=== PATIENT | male | born 1965 ===

== ENCOUNTER 2016-12-22 20:01 | Observation (INO) | payer OTHER ==
[2016-12-22] MEDS ORDERED: Albuterol-Ipratrop 3 mg / 0.5 (3 ml) UD INH STA (20:20)
[2016-12-22] MEDS ORDERED: Sodium Chloride 0.9% 500 ML IV STA (20:20)
[2016-12-22] MEDS ORDERED: Albuterol-Ipratrop 3 mg / 0.5 (3 ml) UD IH STA ×2 (20:20)
[2016-12-22] MEDS ORDERED: Albuterol-Ipratrop 3 mg / 0.5 (3 ml) UD ONE (20:21)
--- NOTE | 2016-12-22 20:33 | ED PDOC ---
HPI: SOB/CHF/COPD Chief Complaint (Provider): Shortness of breath History Per: Patient Onset/Duration Of Symptoms: Days Current Symptoms Are (Timing): Still Present Exacerbating Factor(s): Laying Flat Current Respiratory Medications: None Severity: Moderate Associated Symptoms: Fever, Chills, Sweating, Other (Non-productive cough) <Jean Carlos Harper - Last Filed: 12/22/16 22:46> <Db Marquis - Last Filed: 12/22/16 23:13> Time Seen by Provider: 12/22/16 20:11 Chief Complaint (Nursing): Respiratory Distress Additional Complaint(s): 51 y/o M with PMH of HTN, HLD presents with a 3 day history of progressive SOB. Patient reports associated sinus congestion, rhinorrhea, chills, non-productive cough and pleuritic chest pain radiating to his back when he takes a deep breath. He also reports progressive orthopnea over the last 3 days. He denies any pulmonary history including asthma or COPD and has never smoked. He recently traveled to [place] with his family and returned 8 days ago but denies any other recent travel. Patient further denies headaches, dizziness, abdominal pain, nausea, vomiting, diarrhea, lower extremity pain, focal weakness or paresthesias. (Jean Carlos Harper) Supervising Attending Note <Jean Carlos Harper - Last Filed: 12/22/16 22:46> - Supervising Attending Note The Documented history was done by the: Physician Back Panel Padder The documented physical exam was done by the: Physician Back Panel Padder The documented procedures were done by the: Physician Back Panel Padder - Attestation: I have personally seen and examined this patient.: Yes I have fully participated in the care of the patient.: Yes I have reviewed all pertinent clinical information, including history, physical exam and plan: Yes <Db Marquis - Last Filed: 12/22/16 23:13> - Notes: Notes:: Dyspnea No leg pain. (Db Marquis) Past Medical History - Medical History PMH: HTN, Hyperlipidemia - Family History Family History: States: No Known Family Hx - Living Arrangements Living Arrangements: With Family - Social History Current smoker - smoking cessation education provided: No Ex-Smoker (has not smoked in the last 12 months): No Alcohol: None Drugs: Denies <Leroy,Jean Carlos - Last Filed: 12/22/16 22:46> <Db Marquis - Last Filed: 12/22/16 23:13> Vital Signs: Last Vital Signs Temp 98.1 F 12/22/16 22:30 Pulse 92 H 12/22/16 22:30 Resp 16 12/22/16 22:30 BP 121/72 12/22/16 22:30 Pulse Ox 97 12/22/16 22:50 - Home Medications Home Medications: Ambulatory Orders Medication Instructions Recorded Atorvastatin [Lipitor] 10 mg PO HS 12/22/16 Lisinopril/Hydrochlorothiazide 1 tab PO DAILY 12/22/16 [Lisinopril-Hctz 10-12.5 mg Tab] - Allergies Allergies/Adverse Reactions: Allergies Allergy/AdvReac Type Severity Reaction Status Date / Time No Known Allergies Allergy Verified 12/22/16 20:06 Wells Criteria for PE - Wells Criteria for Pulmonary Embolism Clinical Signs and Symptoms of DVT: No P.E is #1 Diagnosis, or Equally Likely: No Heart Rate >100: No Immobilization at least 3 days;Surgery previous 4 weeks: No Previous, objectively diagnosed PE or DVT: No Hemoptysis: No Malignancy w/treatment within 6 months, or palliative: No Total Score: 0 <RyannunoJean Carlos herring - Last Filed: 12/22/16 22:46> Review of Systems Constitutional: Positive for: Chills. Negative for: Weakness Eyes: Negative for: Vision Change ENT: Positive for: Nose Congestion Cardiovascular: Positive for: Chest Pain, Orthopnea. Negative for: Palpitations Respiratory: Positive for: Cough, Wheezing. Negative for: Hemoptysis, Sputum Gastrointestinal: Negative for: Nausea, Vomiting, Abdominal Pain, Diarrhea Skin: Negative for: Rash Neurological: Negative for: Weakness <Jean Carlos Harper - Last Filed: 12/22/16 22:46> ENT: Positive for: Nose Congestion Respiratory: Positive for: Wheezing <Db Marquis - Last Filed: 12/22/16 23:13> Physical Exam - Reviewed Vital Signs Reviewed: Yes - Physical Exam Appears: Positive for: Uncomfortable Head Exam: Positive for: ATRAUMATIC, NORMAL INSPECTION, NORMOCEPHALIC Skin: Positive for: Warm, Diaphoresis Eye Exam: Positive for: Normal appearance, EOMI, PERRL Cardiovascular/Chest: Positive for: Regular Rate, Rhythm. Negative for: Murmur Respiratory: Positive for: Rales, Wheezing, Other (Decreased air entry b/l with diffuse expiratory wheezes audible. Left lower lung rales present. Patient appears SOB and is speaking in short sentences. ). Negative for: Accessory Muscle Use Pulses-Radial (L): 2+ Pulses-Radial (R): 2+ Gastrointestinal/Abdominal: Positive for: Normal Exam, Soft. Negative for: Tenderness, Distended, Guarding, Rebound Extremity: Positive for: Capillary Refill (<2s). Negative for: Pedal Edema, Calf Tenderness Neurologic/Psych: Positive for: Alert, Oriented (x3) <Jean Carlos Harper - Last Filed: 12/22/16 22:46> - Physical Exam Respiratory: Positive for: Wheezing <bD Marquis - Last Filed: 12/22/16 23:13> - Laboratory Results Result Diagrams: 12/22/16 20:30 12/22/16 20:30 - ECG ECG: Positive for: Viewed By Me ECG Rhythm: Positive for: Normal QRS, Normal ST Segment, Sinus Rhythm. Negative for: ST/T Changes O2 Sat by Pulse Oximetry: 97 - Progress Condition: Improving,but remains with symptoms <Jean Carlos Harper - Last Filed: 12/22/16 22:46> - Laboratory Results Result Diagrams: 12/22/16 20:30 12/22/16 20:30 - ECG Pulse Ox Interpretation: Normal - Radiology X-Ray: Interpreted by Me, Viewed By La X-Ray Interpretation: No Acute Disease - Critical Care Total Time (In Min): 30 Documented Critical Care: Time excludes all time spent performint seperately billable procedures <Db Marquis - Last Filed: 12/22/16 23:13> - Progress ED Course And Treament: 20:30 Afebrile, uncomfortable O2 Sat: 96% on room air EKG NSR with no ischemic changes present Peak flow 160 Duoneb x3 ordered Solumedrol 125mg IV Labs: CBC, CMP, BNP, troponin, ABG, CXR, blood culture, UA 22:00 SOB improved however scattered wheezes audible O2 Sat: 94% on NC Troponin negative, ProBNP WNL Patient to be admitted for observation (Leroy,Jean Carlos) 2313: Stable. AAOx3. Spoke with Dr. Browning. Will admit. Monitor. No hx of asthma. (Db Marquis) Disposition - Patient ED Disposition Is Patient to be Admitted: Yes - Disposition Disposition Time: 22:48 - Pt Status Changed To: Hospital Disposition Of: Observation <RyanesterJean Carlos - Last Filed: 12/22/16 22:46> - Patient ED Disposition Is Patient to be Admitted: Yes Counseled Patient/Family Regarding: Studies Performed, Diagnosis - Pt Status Changed To: Hospital Disposition Of: Observation - POA Present On Arrival: None <Db Marquis - Last Filed: 12/22/16 23:13> - Clinical Impression Clinical Impression: Dyspnea - Disposition Condition: FAIR
[2016-12-22 20:38] LABS: BASO # 0.1 K/uL (0.0-0.2); BASO % 0.9 % (0.0-2.0); EOS # 0.7 K/uL (0.0-0.7); EOS % 8.6 % (0.0-4.0); HEMOGLOBIN 16.7 g/dL (12.0-18.0); LYMPH # 1.5 K/uL (1.0-4.3); LYMPH % 16.9 % (20.0-40.0); MEAN CELL VOLUME 91.4 fl (80.0-94.0); MEAN CORPUSCULAR HEMOGLOBIN 31.8 pg (27.0-31.0); MEAN CORPUSCULAR HGB CONC 34.7 g/dL (33.0-37.0); MONO # 0.9 K/uL (0.0-0.8); MONO % 10.8 % (0.0-10.0); NEUT # 5.4 K/uL (1.8-7.0); NEUT % 62.8 % (50.0-75.0); NRBC % 0.2 % (0.0-0.0); RBC 5.27 Mil/uL (4.40-5.90); RED CELL DISTRIBUTION WIDTH 13.3 % (11.5-14.5); WHITE BLOOD COUNT 8.6 K/uL (4.8-10.8)
[2016-12-22 20:41] LABS: ABG ALLEN TEST YES; ARTERIAL BLOOD GAS HCO3 25.3 mmol/L (21-28); ARTERIAL BLOOD GAS O2 SAT 98.7 % (95-98); ARTERIAL BLOOD GAS PCO2 31 mm/Hg (35-45); ARTERIAL BLOOD GAS PH 7.48 (7.35-7.45); ARTERIAL BLOOD GAS PO2 104 mm/Hg (80-100); ARTERIAL BLOOD GAS TCO2 24.1 mmol/L (22-28)
[2016-12-22 20:43] LABS: ALBUMIN 4.5 g/dL (3.5-5.0)
[2016-12-22 20:45] LABS: GFR AFRICAN-AMERICAN > 60; GFR NON-AFRICAN AMERICAN > 60
[2016-12-22 20:46] LABS: ALB/GLOB RATIO 1.2 (1.0-2.1); ALT/SGPT 40 U/L (21-72); AST/SGOT 27 U/L (17-59); BLOOD UREA NITROGEN 13 mg/dl (9-20); CALCIUM 9.3 mg/dL (8.4-10.2)
[2016-12-22 20:50] LABS: PARTIAL THROMBOPLASTIN TIME 31.6 Seconds (25.6-37.1); PROTHROMBIN TIME 11.1 Seconds (9.8-13.1)
[2016-12-22 21:38] LABS: B-TYPE NATRIURETIC PEPTIDE 31.3 pg/ml (0-900)
[2016-12-22 22:02] LABS: URINE BILIRUBIN NEGATIVE (NEGATIVE); URINE BLOOD SMALL (NEGATIVE); URINE CLARITY SLIGHTY-CLOUDY (Clear); URINE COLOR YELLOW (YELLOW); URINE GLUCOSE (UA) NEG (Normal); URINE LEUKOCYTE ESTERASE NEG Leu/uL (Negative); URINE NITRATE NEGATIVE (NEGATIVE); URINE PROTEIN NEGATIVE (NEGATIVE); URINE UROBILINOGEN 0.2-1.0 mg/dL (0.2-1.0)
[2016-12-22] MEDS ORDERED: Albuterol-Ipratrop 3 mg / 0.5 (3 ml) UD INH PRN (22:19)
--- NOTE | 2016-12-22 22:23 | CP.PCM.HP ---
History of Present Illness - History of Present Illness History of Present Illness: CC: SOB HPI: 51 y/o male with HTN and HLD comes in with 2-3 days of worsening SOB, wheezing, and occ dry non-prod cough. States he has never been diagnosed with asthma or COPD, and never had these symptoms in the past. Denies f/c/n/v/d. Denies CP. Denies hemoptysis. 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 that he is not normally around. He did travel to [place] for about 8 days ago, mainly in the city. Denies going into any rural areas, denies going to any kind of zoo or other place where he would contact animals. ROS: 14 pt ROS negative other than HPI MHx: HTN, HLD SHx: None Allergies: NKDA Medications: per med rec Family Hx: no relevant findings Social Hx: Lives with family, no tobacco use, no EtOH Present on Admission - Present on Admission Any Indicators Present on Admission: No Past Patient History - Past Social History Alcohol: None Drugs: Denies - CARDIAC Hx Hypertension: Yes - PSYCHIATRIC Hx Substance Use: No Meds Allergies/Adverse Reactions: Allergies Allergy/AdvReac Type Severity Reaction Status Date / Time No Known Allergies Allergy Verified 12/22/16 20:06 Physical Exam - Constitutional Appears: No Acute Distress - Head Exam Head Exam: ATRAUMATIC, NORMOCEPHALIC - Eye Exam Eye Exam: EOMI, PERRL - ENT Exam ENT Exam: Mucous Membranes Moist - Neck Exam Neck exam: Positive for: Full Rom - Respiratory Exam Respiratory Exam: Decreased Breath Sounds, Wheezes - Cardiovascular Exam Cardiovascular Exam: Tachycardia, +S1, +S2 - GI/Abdominal Exam GI & Abdominal Exam: Normal Bowel Sounds, Soft - Extremities Exam Extremities exam: Positive for: full ROM, normal inspection Additional comments: no calf/thing tenderness or swelling - Neurological Exam Neurological exam: Alert, CN II-XII Intact, Oriented x3 - Psychiatric Exam Psychiatric exam: Normal Affect, Normal Mood - Skin Skin Exam: Dry, Warm Results - Vital Signs Recent Vital Signs: Last Vital Signs Temp 99.5 F 12/22/16 20:06 Pulse 92 H 12/22/16 20:06 Resp 18 12/22/16 20:17 BP 148/93 H 12/22/16 20:06 Pulse Ox 97 12/22/16 20:41 - Labs Result Diagrams: 12/22/16 20:30 12/22/16 20:30 Labs: Laboratory Results - last 24 hr 12/22/16 12/22/16 12/22/16 20:30 20:30 20:30 WBC 8.6 RBC 5.27 Hgb 16.7 Hct 48.2 MCV 91.4 MCH 31.8 H MCHC 34.7 RDW 13.3 Plt Count 199 MPV 8.0 Neut % (Auto) 62.8 Lymph % (Auto) 16.9 L [place] % (Auto) 10.8 H Eos % (Auto) 8.6 H Baso % (Auto) 0.9 Neut # 5.4 Lymph # 1.5 [place] # 0.9 H Eos # 0.7 Baso # 0.1 PT 11.1 INR 1.0 APTT 31.6 pCO2 pO2 HCO3 ABG pH ABG Total CO2 ABG O2 Saturation ABG Base Excess Ino Test ABG Potassium A-a O2 Difference Glucose Lactate Vent Mode FiO2 Sodium 135 Potassium 4.1 Chloride 104 Carbon Dioxide 24 Anion Gap 12 BUN 13 Creatinine 1.0 Est GFR ( Amer) > 60 Est GFR (Non-Af Amer) > 60 Random Glucose 94 Calcium 9.3 Phosphorus 4.6 H Magnesium 2.0 Total Bilirubin 0.5 AST 27 ALT 40 Alkaline Phosphatase 82 Troponin I < 0.0120 NT-Pro-B Natriuret Pep 31.3 Total Protein 8.1 Albumin 4.5 Globulin 3.6 Albumin/Globulin Ratio 1.2 Arterial Blood Potassium 12/22/16 20:32 WBC RBC Hgb Hct MCV MCH MCHC RDW Plt Count MPV Neut % (Auto) Lymph % (Auto) [place] % (Auto) Eos % (Auto) Baso % (Auto) Neut # Lymph # [place] # Eos # Baso # PT INR APTT pCO2 31 L pO2 104 H HCO3 25.3 ABG pH 7.48 H ABG Total CO2 24.1 ABG O2 Saturation 98.7 H ABG Base Excess 0.4 Ino Test Yes ABG Potassium 3.4 L A-a O2 Difference 178.0 Glucose 98 Lactate 0.8 Vent Mode Aerosol mask FiO2 45.0 Sodium 132.0 Potassium Chloride 102.0 Carbon Dioxide Anion Gap BUN Creatinine Est GFR ( Amer) Est GFR (Non-Af Amer) Random Glucose Calcium Phosphorus Magnesium Total Bilirubin AST ALT Alkaline Phosphatase Troponin I NT-Pro-B Natriuret Pep Total Protein Albumin Globulin Albumin/Globulin Ratio Arterial Blood Potassium 3.4 L - EKG Data EKG Interpreted by: Myself EKG shows normal: Sinus rhythm Rate: Normal - EKG Data EKG comments: prominent appearing T waves in lateral leads, but otherwise no significant findings - Imaging and Cardiology Chest x-ray Status: Image reviewed by me (No obvious consolidations or effusions) Assessment & Plan (1) Asthma attack Assessment and Plan: 51 y/o male with HTN and HLD who comes in acute hypoxic respiratory failure in setting of what appears to be asthma exacerbation. -Continue scheduled and PRN duonebs -wheezing/tightness improving, will transition to PO prednisone for next dose; resume IV if patient worsens -No abx at this time, as no evidence of infection -If respiratory symptoms/hypoxia worse, will consider eval for PE; symptoms don' t appear c/w PE at this time however -Lovenox for DVT PPx Status: Acute (2) DVT prophylaxis Status: Acute
[2016-12-23 06:15] LABS: HEMOGLOBIN 16.2 g/dL (12.0-18.0); MEAN CELL VOLUME 94.3 fl (80.0-94.0); MEAN CORPUSCULAR HEMOGLOBIN 31.8 pg (27.0-31.0); MEAN CORPUSCULAR HGB CONC 33.7 g/dL (33.0-37.0); RBC 5.1 Mil/uL (4.40-5.90); RED CELL DISTRIBUTION WIDTH 13.5 % (11.5-14.5); WHITE BLOOD COUNT 5.9 K/uL (4.8-10.8)
[2016-12-23 06:29] LABS: BLOOD UREA NITROGEN 13 mg/dl (9-20); CALCIUM 9.4 mg/dL (8.4-10.2); GFR AFRICAN-AMERICAN > 60; GFR NON-AFRICAN AMERICAN > 60
[2016-12-23] MEDS: Albuterol-Ipratrop 3 mg / 0.5 (3 ml) UD INH SCH ×3 (07:55→15:49)
[2016-12-23] MEDS ORDERED: Patient's Own Med (Lisinopril/Hydrochlorothiazide [Lisinopril-Hctz 10-12.5 Mg Tab] 1 TAB) PO SCH (09:00)
[2016-12-23] MEDS ORDERED: Iodixanol 320 MG/ML 100 ML BOTTLE IV ONE (09:31)
[2016-12-23] MEDS ORDERED: Sodium Chloride 0.9% 50 ML IV ONE (09:32)
[2016-12-23] MEDS ORDERED: Enoxaparin 80 mg Syringe SC STA (09:57)
[2016-12-23] MEDS ORDERED: Pantoprazole 40 mg EC Tab PO STA (09:58)
--- NOTE | 2016-12-23 10:57 | CT ---
PROCEDURE: CT Chest with contrast (Pulmonary Angiogram) HISTORY: resp insuff, CP, tachy, desaturation COMPARISON: None available. TECHNIQUE: Axial computed tomography images were obtained of the chest in the pulmonary arterial phase of enhancement. Coronal and sagittal reformatted images were created and reviewed. Intravenous contrast dose: 99 mL Visipaque 320 Radiation dose: Total exam DLP = 457.79 mGy-cm. This CT exam was performed using one or more of the following dose reduction techniques: Automated exposure control, adjustment of the mA and/or kV according to patient size, and/or use of iterative reconstruction technique. FINDINGS: PULMONARY ARTERIES: Examination technically limited. No large central embolus involving the main, right and left pulmonary artery or lobar vessels. Segmental and subsegmental branches cannot be adequately evaluated on the basis of this examination. AORTA: No acute findings. No thoracic aortic aneurysm. LUNGS: Unremarkable. No nodule, mass or pulmonary consolidation. PLEURAL SPACES: Unremarkable. No effusion or pneuomothorax. HEART: Unremarkable. No cardiomegaly. No significant pericardial effusion. LYMPH NODES: No lymphadenopathy. BONES, CHEST WALL: Unremarkable. No fractureThe or destructive lesion OTHER FINDINGS: Unremarkable. IMPRESSION: Limited examination due to suboptimal timing of scan relative to contrast bolus. No large central pulmonary embolus. Cannot evaluate segmental and subsegmental pulmonary artery branches accurately on the basis of this examination. No pulmonary infiltrate or pleural effusion. Otherwise unremarkable.
--- NOTE | 2016-12-23 11:09 | CARD ---
APPROVED REPORT EKG Measurement Heart [id number] <Conclusion> Normal sinus rhythm Normal ECG
[2016-12-23 12:24] VITALS: RESP 20
--- NOTE | 2016-12-23 13:35 | CP.PCM.DIS ---
Provider - Provider Date of Admission: 12/22/16 22:18 Attending physician: Chante Browning MD Time Spent in preparation of Discharge (in minutes): 40 Diagnosis - Discharge Diagnosis (1) Reactive airway disease with wheezing Status: Acute (2) HTN (hypertension) Status: Chronic (3) Hyperlipidemia Status: Chronic (4) DVT prophylaxis Status: Acute Hospital Course - Lab Results Lab Results: Most Recent Lab Values WBC 5.9 K/uL (4.8-10.8) 12/23/16 05:25 RBC 5.10 Mil/uL (4.40-5.90) 12/23/16 05:25 Hgb 16.2 g/dL (12.0-18.0) 12/23/16 05:25 Hct 48.1 % (35.0-51.0) 12/23/16 05:25 MCV 94.3 fl (80.0-94.0) H D 12/23/16 05:25 MCH 31.8 pg (27.0-31.0) H 12/23/16 05:25 MCHC 33.7 g/dL (33.0-37.0) 12/23/16 05:25 RDW 13.5 % (11.5-14.5) 12/23/16 05:25 Plt Count 189 K/uL (130-400) 12/23/16 05:25 MPV 8.0 fl (7.2-11.7) 12/22/16 20:30 Neut % (Auto) 62.8 % (50.0-75.0) 12/22/16 20:30 Lymph % (Auto) 16.9 % (20.0-40.0) L 12/22/16 20:30 [place] % (Auto) 10.8 % (0.0-10.0) H 12/22/16 20:30 Eos % (Auto) 8.6 % (0.0-4.0) H 12/22/16 20:30 Baso % (Auto) 0.9 % (0.0-2.0) 12/22/16 20:30 Neut # 5.4 K/uL (1.8-7.0) 12/22/16 20:30 Lymph # 1.5 K/uL (1.0-4.3) 12/22/16 20:30 [place] # 0.9 K/uL (0.0-0.8) H 12/22/16 20:30 Eos # 0.7 K/uL (0.0-0.7) 12/22/16 20:30 Baso # 0.1 K/uL (0.0-0.2) 12/22/16 20:30 PT 11.1 Seconds (9.8-13.1) 12/22/16 20:30 INR 1.0 (0.9-1.2) 12/22/16 20:30 APTT 31.6 Seconds (25.6-37.1) 12/22/16 20:30 D-Dimer, Quantitative 76 ng/mlDDU (0-230) 12/23/16 12:10 pCO2 31 mm/Hg (35-45) L 12/22/16 20:32 pO2 104 mm/Hg (80-100) H 12/22/16 20:32 HCO3 25.3 mmol/L (21-28) 12/22/16 20:32 ABG pH 7.48 (7.35-7.45) H 12/22/16 20:32 ABG Total CO2 24.1 mmol/L (22-28) 12/22/16 20:32 ABG O2 Saturation 98.7 % (95-98) H 12/22/16 20:32 ABG Base Excess 0.4 mmol/L (-2.0-3.0) 12/22/16 20:32 Ino Test Yes 12/22/16 20:32 ABG Potassium 3.4 mmol/L (3.6-5.2) L 12/22/16 20:32 A-a O2 Difference 178.0 mm/Hg 12/22/16 20:32 Sodium 132.0 mmol/L (132-148) 12/22/16 20:32 Chloride 102.0 mmol/L (98-107) 12/22/16 20:32 Glucose 98 mg/dL (75-110) 12/22/16 20:32 Lactate 0.8 mmol/L (0.7-2.1) 12/22/16 20:32 Vent Mode Aerosol mask 12/22/16 20:32 FiO2 45.0 % 12/22/16 20:32 Sodium 138 mmol/l (132-148) 12/23/16 05:25 Potassium 4.8 MMOL/L (3.6-5.0) 12/23/16 05:25 Chloride 102 mmol/L (98-107) 12/23/16 05:25 Carbon Dioxide 24 mmol/L (22-30) 12/23/16 05:25 Anion Gap 16 (10-20) 12/23/16 05:25 BUN 13 mg/dl (9-20) 12/23/16 05:25 Creatinine 1.0 mg/dL (0.8-1.5) 12/23/16 05:25 Est GFR ( Amer) > 60 12/23/16 05:25 Est GFR (Non-Af Amer) > 60 12/23/16 05:25 Random Glucose 201 mg/dL (75-110) H 12/23/16 05:25 Calcium 9.4 mg/dL (8.4-10.2) 12/23/16 05:25 Phosphorus 4.6 mg/dl (2.5-4.5) H 12/22/16 20:30 Magnesium 2.0 MG/DL (1.6-2.3) 12/22/16 20:30 Total Bilirubin 0.5 mg/dl (0.2-1.3) 12/22/16 20:30 AST 27 U/L (17-59) 12/22/16 20:30 ALT 40 U/L (21-72) 12/22/16 20:30 Alkaline Phosphatase 82 U/L (38-126) 12/22/16 20:30 Troponin I < 0.0120 ng/mL (0.00-0.120) 12/22/16 20:30 NT-Pro-B Natriuret Pep 31.3 pg/ml (0-900) 12/22/16 20:30 Total Protein 8.1 G/DL (6.3-8.2) 12/22/16 20:30 Albumin 4.5 g/dL (3.5-5.0) 12/22/16 20:30 Globulin 3.6 gm/dL (2.2-3.9) 12/22/16 20:30 Albumin/Globulin Ratio 1.2 (1.0-2.1) 12/22/16 20:30 TSH 3rd Generation 0.32 mIU/ML (0.46-4.68) L 12/23/16 11:34 Arterial Blood Potassium 3.4 mmol/L (3.6-5.2) L 12/22/16 20:32 Urine Color Yellow (YELLOW) 12/22/16 21:53 Urine Clarity Slighty-cloudy (Clear) 12/22/16 21:53 Urine pH 5.0 (5.0-8.0) 12/22/16 21:53 Ur Specific [place] 1.025 (1.003-1.030) 12/22/16 21:53 Urine Protein Negative mg/dL (NEGATIVE) 12/22/16 21:53 Urine Glucose (UA) Neg mg/dL (Normal) 12/22/16 21:53 Urine Ketones Negative mg/dL (NEGATIVE) 12/22/16 21:53 Urine Blood Small (NEGATIVE) 12/22/16 21:53 Urine Nitrate Negative (NEGATIVE) 12/22/16 21:53 Urine Bilirubin Negative (NEGATIVE) 12/22/16 21:53 Urine Urobilinogen 0.2-1.0 mg/dL (0.2-1.0) 12/22/16 21:53 Ur Leukocyte Esterase Neg Leigh/uL (Negative) 12/22/16 21:53 Urine RBC (Auto) 7 /hpf (0-3) H 12/22/16 21:53 Urine Microscopic WBC < 1 /hpf (0-5) 12/22/16 21:53 - Hospital Course Hospital Course: 51 y/o gent with Hx of HTN, Hyperlipidemia, came in because of SOB and wheezing. Pt denies hx of Asthma nor smoking. In the ED , found to be wheezing - he was started on IV Solumedrol and was given Albuterol nebulizer treatments. He was then admitted to Telemetry . Pt was noted to be tachycardic. CTA pulm was done w/c showed no large PE, suboptimal opacification of the subsegmental branches, no infiltrates noted. D Dimer was negative. Patient's symptoms improved with the nebulizer treatments and steroid. 1. Reactive Airway Disease with wheezing, not Asthma PE ruled out CTA Pulm : neg large PE, Ddimer normal started on IV Solumedrol and Nebulizer treatments will d/c on tapering dose of Prednisone and Albuterol HFA pt's sxs resolved 2. HTN controlled cont home antihypertensive 3. Hyperlipidemia -cont Lipitor Discharge Exam - Head Exam Head Exam: ATRAUMATIC, NORMAL INSPECTION, NORMOCEPHALIC - Eye Exam Eye Exam: EOMI, Normal appearance, PERRL Pupil Exam: NORMAL ACCOMODATION - ENT Exam ENT Exam: Mucous Membranes Moist, Normal External Ear Exam - Neck Exam Neck exam: Full Rom - Respiratory Exam Respiratory Exam: NORMAL BREATHING PATTERN. absent: Respiratory Distress - Cardiovascular Exam Cardiovascular Exam: REGULAR RHYTHM, +S1, +S2 - GI/Abdominal Exam GI & Abdominal Exam: Normal Bowel Sounds, Soft. absent: Tenderness - Extremities Exam Extremities exam: full ROM, normal capillary refill, pedal pulses present Additional comments: neg calf tenderness - Back Exam Back exam: FULL ROM. absent: CVA tenderness (L), CVA tenderness (R) - Neurological Exam Neurological exam: Alert, CN II-XII Intact, Normal Gait, Oriented x3, Reflexes Normal - Psychiatric Exam Psychiatric exam: Normal Affect, Normal Mood - Skin Skin Exam: Dry, Normal Color, Warm Discharge Plan - Discharge Medications Prescriptions: Albuterol HFA [Ventolin HFA 90 mcg/actuation (8 g)] 2 puff IH Q6 PRN #1 inhaler PRN Reason: Wheezing predniSONE [Prednisone] 10 mg PO ASDIR #10 tab - Follow Up Plan Condition: GOOD Disposition: HOME/ ROUTINE Additional Instructions: ff up with PMD yolis Referrals: [facility] [place] [Outside]
[2016-12-23 14:31] LABS: T4 7.27 ug/dl (5.5-11.0)
[2016-12-23 15:47] VITALS: BP 123/73; PULSE 112; TEMP 98.3; O2SAT 94
--- NOTE | 2016-12-23 15:56 | RAD ---
HISTORY: Sepsis Patient COMPARISON: [place] FINDINGS: LUNGS: No active pulmonary disease. PLEURA: No significant pleural effusion identified, no pneumothorax apparent. CARDIOVASCULAR: Normal. OSSEOUS STRUCTURES: No significant abnormalities. VISUALIZED UPPER ABDOMEN: Normal. OTHER FINDINGS: None. IMPRESSION: No active disease.
== END 2016-12-23 16:21 | disposition home or self-care (01) ==
LOC: H.ER 20:01 → H.ERHOLD 22:18 → H.TEL 12-23 00:10
PROVIDERS: ADMIT Internal Medicine; ATTEND Internal Medicine
DX: J45.901 Unspecified asthma with (acute) exacerbation (principal); J96.01 Acute respiratory failure with hypoxia; E78.5 Hyperlipidemia, unspecified; I10 Essential (primary) hypertension; J44.9 Chronic obstructive pulmonary disease, unspecified; Z79.899 Other long term (current) drug therapy; R00.0 Tachycardia, unspecified